=== PATIENT | female | born 1990 | race Caucasian/White ===

== ENCOUNTER 2017-05-21 14:01 | Emergency (ER) | payer OTHER ==
[~2017-05-21] VITALS: Ht 167.6 cm; Wt 80.0 kg
[~2017-05-21 14:01] MED LIST: COLACE100 MG PO; NORCO1 TA2 PO
[2017-05-21 14:29] VITALS: Ht 167.6 cm; Wt 80.0 kg
[2017-05-21 17:01] VITALS: BP 108/55
[2017-05-21 17:14] LABS: BASOPHIL % 0.3 % (0-2); PLATELET COUNT 235 x10^3mcL (130-400); RED CELL DISTRIBUTION WIDTH 12.6 % (11.5-14.5)
[2017-05-21 17:24] LABS: CALCIUM 8.8 mg/dL (8.5-10.1); CARBON DIOXIDE 27.3 mmol/L (21-32); CHLORIDE SERUM 104 mmol/L (98-107); CREATININE SERUM 0.6 mg/dL (0.6-1.0); GFR1 > 60 mL/min; GLUCOSE SERUM 92 mg/dL (74-106); POTASSIUM SERUM 3.5 mmol/L (3.5-5.1); SODIUM SERUM 140 mmol/L (136-145)
[2017-05-21 17:29] LABS: ALBUMIN 3.7 g/dL (3.4-5.0); ALKALINE PHOSPHATASE 79 U/L (46-116); ALT/SGPT 22 U/L (14-59); AST/SGOT 33 U/L (15-37); BILIRUBIN TOTAL 0.32 mg/dL (0.20-1.00); TOTAL PROTEIN, SERUM 7.7 g/dL (6.4-8.2)
[2017-05-23 10:07] LABS: RAPID PLASMA REAGIN Non Reactive (Non Reactive)
== END 2017-05-21 17:01 | disposition home or self-care (01) ==
LOC: ED 14:01
PROVIDERS: Emergency Medicine
DX: N93.0 Postcoital and contact bleeding (principal); Z88.0 Allergy status to penicillin
CPT/HCPCS: 36415; 87491; 87591

== ENCOUNTER 2018-01-05 14:41 | Emergency (ER) | payer OTHER ==
[~2018-01-05] VITALS: Ht 170.2 cm; Wt 78.2 kg
[2018-01-05 14:51] VITALS: Ht 170.2 cm; Wt 78.2 kg
[2018-01-05 17:19] VITALS: BP 114/68
== END 2018-01-05 17:48 | disposition home or self-care (01) ==
LOC: ED 14:41
DX: N39.0 Urinary tract infection, site not specified (principal); Z88.0 Allergy status to penicillin
CPT/HCPCS: 82962

== ENCOUNTER 2018-06-19 14:32 | Emergency (ER) | payer OTHER ==
[~2018-06-19] VITALS: Ht 167.6 cm; Wt 75.9 kg
[2018-06-19 14:42] VITALS: Ht 167.6 cm; Wt 75.9 kg
[2018-06-19 16:28] VITALS: BP 107/71
== END 2018-06-19 16:28 | disposition home or self-care (01) ==
LOC: ED 14:32
DX: S93.401A Sprain of unspecified ligament of right ankle, initial encounter (principal); Z88.0 Allergy status to penicillin; X50.1XXA Overexertion from prolonged static or awkward postures, initial encounter; Y93.89 Activity, other specified; Y92.89 Other specified places as the place of occurrence of the external cause; Y99.8 Other external cause status

== ENCOUNTER 2020-01-08 19:58 | Emergency (ER) | payer OTHER ==
[~2020-01-08] VITALS: Ht 167.6 cm; Wt 72.6 kg
[2020-01-08 20:13] VITALS: Ht 167.6 cm; Wt 72.6 kg
== END 2020-01-08 21:07 | disposition home or self-care (01) ==
LOC: ED 19:58
DX: L03.221 Cellulitis of neck (principal); Z86.73 Personal history of transient ischemic attack (TIA), and cerebral infarction without residual deficits; Z88.0 Allergy status to penicillin
CPT/HCPCS: J1885